=== PATIENT | male | born 1975 | race Caucasian/White ===

== ENCOUNTER 2017-09-18 09:30 | Emergency (ER) | payer OTHER ==
[2017-09-18] MEDS: HYDROCODONE/APAP (5/325) TAB PO (13:17)
== END 2017-09-18 13:19 | disposition home or self-care (01) ==
LOC: FTE 09:30
DX: S06.0X0A Concussion without loss of consciousness, initial encounter (principal); R51 Headache; Y04.2XXA Assault by strike against or bumped into by another person, initial encounter; Y92.9 Unspecified place or not applicable
CPT/HCPCS: 70450; 70486; 72125; 99285-25

== ENCOUNTER 2018-04-07 00:25 | Emergency (ER) | payer SELFPAY, OTHER | END 2018-04-07 03:06 | disposition left against medical advice (07) | LOC: E/R 03:06 | DX: Z53.21 Procedure and treatment not carried out due to patient leaving prior to being seen by health care provider (principal) ==